=== PATIENT | female | born 1965 | race Caucasian/White ===

== ENCOUNTER 2023-12-26 03:45 | Day surgery (SDC) | payer OTHER ==
[2023-12-25 10:42] VITALS: BMI 26.3
[2023-12-26 06:18] VITALS: RESP 17; TEMP 97.8
[2023-12-26] MEDS ORDERED: SODIUM CHLORIDE 0.9% P/F 10 ML VIAL IJ ONE (07:43)
[2023-12-26] MEDS ORDERED: ACETAMINOPHEN 500 MG TABLET (FP) PO PRN (09:13)
[2023-12-26 10:42] VITALS: BP 139/66; PULSE 57
== END 2023-12-26 09:31 | disposition home or self-care (01) ==
LOC: JASU-SURG 03:45
PROVIDERS: ATTEND Pain Medicine Pain Medicine
PROC: 01HY3MZ Insertion of Neurostimulator Lead into Peripheral Nerve, Percutaneous Approach (ICD-10-PCS; principal; 2023-12-26 08:00)
DX: G89.4 Chronic pain syndrome (principal); M25.512 Pain in left shoulder
CPT/HCPCS: 64555; C1778